=== PATIENT | female | born 1975 | race Native Hawaiian/Other Pacific Islander ===

== ENCOUNTER 2017-09-09 16:08 | Outpatient (CLI) | payer OTHER ==
[~2017-09-09 16:08] MED LIST: LITHIUM CARB300 MG PO; LITHIUM CARB600 MG PO; REQUIP XL2 MG PO
== END 2017-09-09 22:08 | disposition home or self-care (01) ==
LOC: RAD 16:08
DX: M79.672 Pain in left foot (principal)

== ENCOUNTER 2018-01-28 10:31 | Emergency (ER) | payer OTHER ==
[~2018-01-28] VITALS: Ht 167.6 cm; Wt 93.0 kg
[2018-01-28 12:43] VITALS: BP 160/78; TEMP 98.1
== END 2018-01-28 12:51 | disposition home or self-care (01) ==
LOC: ED 10:31
PROC: 3E1CX8Z Irrigation of Eye using Irrigating Substance (ICD-10-PCS; principal; 2018-01-28)
DX: T20.20XA Burn of second degree of head, face, and neck, unspecified site, initial encounter (principal); T23.201A Burn of second degree of right hand, unspecified site, initial encounter; T22.211A Burn of second degree of right forearm, initial encounter; T31.10 Burns involving 10-19% of body surface with 0% to 9% third degree burns; X08.8XXA Exposure to other specified smoke, fire and flames, initial encounter; Y92.89 Other specified places as the place of occurrence of the external cause
CPT/HCPCS: 90715; 99283

== ENCOUNTER 2021-04-21 09:22 | Outpatient (CLI) | payer OTHER | END 2021-04-21 21:44 | disposition home or self-care (01) | LOC: RAD 09:22 | PROVIDERS: ATTEND Family Medicine | DX: U07.1 COVID-19 (principal); J12.82 Pneumonia due to coronavirus disease 2019 ==

== ENCOUNTER 2021-04-29 09:58 | Outpatient (CLI) | payer OTHER | END 2021-04-29 19:29 | disposition home or self-care (01) | LOC: RAD 09:58 | PROVIDERS: ATTEND Nurse Practitioner Family | DX: J12.82 Pneumonia due to coronavirus disease 2019 (principal) ==

== ENCOUNTER 2021-11-06 17:05 | Emergency (ER) | payer OTHER | END 2021-11-06 17:11 | disposition home or self-care (01) | LOC: ED 17:05 | DX: Z53.21 Procedure and treatment not carried out due to patient leaving prior to being seen by health care provider (principal); R51.9 Headache, unspecified; R11.0 Nausea | CPT/HCPCS: 99281 ==